=== PATIENT | male | born 1960 | race Caucasian/White ===

== ENCOUNTER → 2020-08-08 | Day surgery (SDC) | payer OTHER ==
[~2020-08-08] MED LIST: AMLODIPINE BESY10 MG PO; CYCLOBENZAPRINE5 MG PO; DULOXETINE HCL60 MG PO; ETODOLAC400 MG PO; FLOMAX 0.4 MG0.4 MG PO; GABAPENTIN400 MG PO; KEFLEX CAP 500500 MG PO; LIPITOR20 MG PO; LOSARTAN POTASS50 MG PO; NAPROSYN500 MG PO; OMEPRAZOLE20 M1 PO
== END | disposition home or self-care (01) ==
LOC: OR 11:26
PROVIDERS: Urology
PROC: 0TJB8ZZ Inspection of Bladder, Via Natural or Artificial Opening Endoscopic (ICD-10-PCS; principal; 2020-08-08 13:45)
DX: R31.0 Gross hematuria (principal); N40.1 Benign prostatic hyperplasia with lower urinary tract symptoms; R35.0 Frequency of micturition; R39.14 Feeling of incomplete bladder emptying; R35.1 Nocturia; R39.15 Urgency of urination; R39.12 Poor urinary stream; N32.89 Other specified disorders of bladder; G89.29 Other chronic pain; M54.9 Dorsalgia, unspecified; Z79.899 Other long term (current) drug therapy; Z20.822 Contact with and (suspected) exposure to COVID-19
CPT/HCPCS: J7040

== ENCOUNTER → 2020-12-07 | Outpatient (CLI) | payer OTHER | LOC: SLEEP-COR 10:40 | DX: D33.3 Benign neoplasm of cranial nerves (principal); G47.33 Obstructive sleep apnea (adult) (pediatric); M54.2 Cervicalgia; G50.1 Atypical facial pain | CPT/HCPCS: 95810 ==